=== PATIENT | female | born 1965 | race Caucasian/White ===

== ENCOUNTER 2017-10-25 07:26 | Emergency (ER) | payer BC ==
[2017-10-25] MEDS: LIDOCAINE 2% 20 ML VIAL. IJ (07:50)
== END 2017-10-25 08:40 | disposition home or self-care (01) ==
LOC: ER 07:26
DX: S60.142A Contusion of left ring finger with damage to nail, initial encounter (principal); I10 Essential (primary) hypertension; Z96.659 Presence of unspecified artificial knee joint; W23.0XXA Caught, crushed, jammed, or pinched between moving objects, initial encounter; Y93.89 Activity, other specified; Y92.89 Other specified places as the place of occurrence of the external cause; Y99.8 Other external cause status
CPT/HCPCS: 11740; 99284; J2001

== ENCOUNTER → 2018-04-28 | Outpatient (CLI) | payer OTHER ==
[2017-10-25 07:35] VITALS: BP 141/88
--- NOTE | 2018-04-28 16:33 | RAD ---
EXAM: Right lower extremity venous Doppler sonogram. HISTORY: Pain and swelling. TECHNIQUE: Hernandez scale and color Doppler sonographic evaluation of the right lower extremity veins with spectral waveform analysis was performed. FINDINGS: There is normal color flow, normal compressibility and there are normal spectral waveforms in the common femoral, superficial femoral, popliteal, posterior tibial and greater saphenous veins. IMPRESSION: No Doppler evidence of lower extremity deep venous thrombosis. Electronically signed by: Jennifer Monroy MD (04/28/2018 4:29 PM) [id number]
== END | disposition home or self-care (01) ==
LOC: RAD 09:27
PROVIDERS: ATTEND Internal Medicine
DX: Z03.89 Encounter for observation for other suspected diseases and conditions ruled out (principal)
CPT/HCPCS: 93971

== ENCOUNTER → 2018-11-28 | Outpatient (CLI) | payer OTHER ==
[2017-10-25 07:35] VITALS: BP 141/88
--- NOTE | 2018-11-28 13:13 | KCIC ---
LUMBAR SPINE WO CONTRAST Date: 11/28/2018 8:45 AM Indication: New onset low back pain Comparison: None. Technique: Multi-planar multi-weighted magnetic resonance imaging of the lumbar spine was performed without intravenous contrast using the standard lumbar spine protocol. FINDINGS: Transitional anatomy at the lumbosacral junction with the inferior most squared vertebral body designated a partially sacralized L5 vertebra. The lumbar spine is normally aligned. No acute fracture. Mild multilevel degenerative disc desiccation and disc height loss. Fatty degenerative endplate changes at T10-11 and L4-5. The conus terminates at a normal level. No abnormal signal is seen within the visualized distal spinal cord. No clumping of intrathecal nerve roots. No soft tissue abnormality in the visualized abdomen or pelvis. T12-L1: No disc bulge. No facet arthropathy. No significant spinal stenosis or neural foraminal narrowing. L1-L2: No disc bulge. No facet arthropathy. No significant spinal stenosis or neural foraminal narrowing. L2-L3: Disc bulge. Mild facet arthropathy. No significant spinal stenosis or neural foraminal narrowing. L3-L4: Disc bulge. Mild facet arthropathy. No significant spinal stenosis or neural foraminal narrowing. L4-L5: Disc bulge with annular tear. Mild facet arthropathy. No significant spinal stenosis or neural foraminal narrowing. L5-S1: No disc bulge. No facet arthropathy. No significant spinal stenosis or neural foraminal narrowing. IMPRESSION: Mild lumbar spondylosis, as detailed above. Electronically signed by: Drake Martinez MD (11/28/2018 1:10 PM) [facility]
== END | disposition home or self-care (01) ==
LOC: KCIC MRI 08:12
PROVIDERS: ATTEND Physical Medicine & Rehabilitation
DX: S33.5XXA Sprain of ligaments of lumbar spine, initial encounter (principal); M47.816 Spondylosis without myelopathy or radiculopathy, lumbar region; M12.88 Other specific arthropathies, not elsewhere classified, other specified site; X58.XXXA Exposure to other specified factors, initial encounter; Y93.89 Activity, other specified; Y92.89 Other specified places as the place of occurrence of the external cause; Y99.8 Other external cause status
CPT/HCPCS: 72148

== ENCOUNTER → 2018-12-16 | Outpatient (CLI) | payer OTHER ==
[2017-10-25 07:35] VITALS: BP 141/88
[~2018-12-16] MED LIST: CLON0.2T PO; DEXT20TA24 PO; GABA300C18 PO; HYDR-2763 PO; TIZA4TAB2 PO; ZOLP10TA4 PO
--- NOTE | 2018-12-16 22:40 | PAIN ---
DATE OF SERVICE: 12/16/2018 INITIAL CONSULTATION FOR PAIN CLINIC CHIEF COMPLAINT: Low back, bilateral lower extremity pain. HISTORY OF PRESENT ILLNESS: This is a 53-year-old female who presents with history of pain with low back and bilateral lower extremities for over a month now, building up for many months but the past month has been much worse. The patient reports it is worse with standing, walking, changing positions, bending, stooping, lifting items. The patient reports it awakens her from sleep at night about 4-6 times. She had some loss of bladder control initially about 2 times, this was about a month ago, has not happened since and is not consistent. The patient reports it does affect her ability to walk at times. She is not using any assistive devices, however. The patient had some trigger point injections with Dr. Feliz which helped for about 30 days, but the pain came back fairly significantly and it did not relieve all of her back pain. The patient reports she has taken hydrocodone as well as tizanidine, which helps only about 50:50 at a time. The patient reports no loss of motor function. Describes the pain as sharp and constant across the low back radiating to posterior gluteus, posterior thighs, lateral thighs, anterior thighs, medial thighs radiating with tingling sensation in the legs and into the feet as well bilaterally. The patient did have MRI scan of the lumbar spine showing spondylosis as well as disk bulge at L2-L3, L3-L4 and L4-L5 with mild facet arthropathy at these levels. No significant spinal stenosis narrowing noted. The patient reports a disability rating from 0 to 10, 10 being the worst, as an 8 with family and home responsibilities and occupation, 10 with recreation and social activity, 9 with sexual behavior, 6 with self-care and 2 with life support activities. The patient reports no loss of motor function, but significant fatigability of both lower extremities, worse on the right than the left, but increased fatigability with walking and standing on the right, mostly. PAST MEDICAL HISTORY: Significant for cigarette smoking, previous right knee replacement and ACL surgery on the left x 2. Otherwise, the patient has been in good health. CURRENT MEDICATIONS: Include hydrocodone, tizanidine and [id number] Aleve. ALLERGIES: The patient has no known drug allergies. FAMILY HISTORY: Significant for hypertension and diabetes. SOCIAL HISTORY: The patient does not drink alcohol, does not use any illegal, illicit or recreational drugs. Smokes less than a pack a day, has for the past 10 years. 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 REVIEW OF SYSTEMS: The patient's review of systems is positive for those items mentioned in history of present illness. All systems reviewed and otherwise negative. It is complete, full and well documented on the patient's chart. PHYSICAL EXAMINATION: VITAL SIGNS: The patient's blood pressure 144/94, pulse 96, respirations 18, temperature is 98.2 degrees Fahrenheit, height is 5 feet 2 inches, weight is 173 pounds. GENERAL: The patient is awake, alert, oriented, appropriate, very pleasant demeanor. HEENT: Shows normocephalic, atraumatic. Extraocular movements are intact and symmetrical. Oral cavity: Mucous membranes moist and pink. Dentition is intact. NECK: Shows anterior throat supple without palpable lymphadenopathy noted. Swallow reflex symmetrical. CHEST: Shows normal on inspection. Breath sounds clear to auscultation bilaterally. HEART: Shows S1, S2 clear. No murmurs auscultated. ABDOMEN: Soft, nontender, nondistended. No palpable organomegaly is noted. No rebound or guarding demonstrated. BACK: Shows spine grossly in the midline. Normal appearing thoracic kyphosis and lumbar lordotic curvature. The patient does have some small hives on the mid upper back as well as into the low back, more on the right side than the left, which is slightly erythematous but without significant raised quality. The patient's paraspinous musculature in the lumbar distribution shows symmetrical on inspection, on palpation shows some moderate tenderness diffusely throughout the upper, middle and lower distribution of the paraspinous muscles, but is symmetrical without evidence of hypertrophy, no trigger points, no radiation of pain. There is no tenderness over the spinous processes, sacrum or sacroiliac regions. The patient has good rotational motion of lumbar spine, both laterally greater than 10 degrees right and left as well as extension greater than 10 degrees, forward flexion 45 degrees without significant increase in pain. EXTREMITIES: Lower extremities show deep tendon reflexes 2+ in the patellar, 1+ tendo-calcaneus tendons are equal. Motor exam is approximately 4 on a scale of 5 with right quadriceps and hamstring and 5/5 at the ankle with dorsiflexion and extension. Left side is 5/5 throughout. Peripheral pulses are 1+ posterior tibia. No peripheral edema is noted bilaterally. Lower extremities are warm and dry to touch, equal in color and appearance. Straight leg raise noted to be negative for reproduction of radicular symptoms bilaterally. Negative Gaenslen's and Osmany's maneuver bilaterally as well. The patient is able to stand, stand on her toes without significant difficulty or loss of balance, walking with a normal appearing gait for short distance in the office today, not using any assistive devices. Skin shows warm and dry with good turgor. No edema. No rashes or bruising. Again, some hives noted on the back as described. IMPRESSION: 1. This is a 53-year-old female with approximately 1-month history of increasing pain in the low back, bilateral lower extremities. 2. MRI scan of lumbar spine as noted. 3. Cigarette smoking. PLAN: Options were discussed with the patient including conservative medical managements, physical therapies and interventional techniques. We discussed a lumbar epidural steroid injection using description as well as anatomical models to describe the procedure. Risks were then discussed and the patient will return to the clinic in approximately 1 week as she is returning to her working shift immediately after her visit today where she will be on her feet for most of the next 8 hours. We discussed this and we will have her return next week when she is off work since so she may relax and get off her feet after the injection. The patient will follow up in approximately one week. We will plan on lumbar epidural steroid injection at that time. MDE TEIXEIRA MD DR: ORION/dino JOB#: [id number] / [id number]
== END | disposition home or self-care (01) ==
LOC: PNCL 08:09
PROVIDERS: ATTEND Anesthesiology
DX: M54.5 Low back pain (principal); M79.605 Pain in left leg; M79.604 Pain in right leg; F17.210 Nicotine dependence, cigarettes, uncomplicated; Z96.641 Presence of right artificial hip joint; Z79.891 Long term (current) use of opiate analgesic; Z79.899 Other long term (current) drug therapy
CPT/HCPCS: G0463

== ENCOUNTER → 2018-12-23 | Outpatient (CLI) | payer OTHER ==
[2018-12-16 19:00] VITALS: BP 148/78
[~2018-12-23] MED LIST changes: +IOHEXOL 180 MG/ML 10 ML VIAL. ONE; +methylPREDNISolone ACETATE 40 MG/ML VIAL. ONE; +methylPREDNISolone ACETATE 80 MG/ML VIAL. ONE
--- NOTE | 2018-12-23 08:40 | PAIN ---
DATE OF SERVICE: 12/23/2018 PROGRESS NOTE FOR PAIN CLINIC DIAGNOSIS: Lumbar radiculopathy with lumbar degenerative disk disease. HISTORY OF PRESENT ILLNESS: The patient is a 53-year-old female who returns for followup status post initial evaluation and returns today as she was off working day. She was first evaluated and came back today, because she can rest after her injection. Reports still significant pain in the low back and right lower extremity as it was previously. No new motor or sensory deficits, no new changes. The patient reports it is tingling, sharp, dull, tight, and shooting pain radiating to the right leg, becoming more severe with walking, standing, changing positions, and standing at work. The patient reports it is a 10 on a scale of 10 at its worst, 8 on average, 3 at its least, and is an 8 today. The patient reports no new motor or sensory deficits, no new bowel or bladder incontinence or other complaints. PHYSICAL EXAMINATION: VITAL SIGNS: The patient's blood pressure 136/95, pulse 96, respirations are 16, temperature is 98.0 degrees Fahrenheit. GENERAL: The patient is awake, alert, oriented, appropriate, very pleasant demeanor. HEENT: Head is normocephalic, atraumatic. Extraocular movements are intact and symmetrical. Oral cavity: Mucous membranes moist and pink. Dentition is intact. NECK: Shows anterior throat supple without palpable lymphadenopathy noted. Swallow reflex symmetrical. CHEST: Shows normal on inspection. Breath sounds are clear to auscultation bilaterally. HEART: Shows S1, S2 clear. No murmurs auscultated. ABDOMEN: Soft, nontender, nondistended. No palpable organomegaly is noted. No rebound or guarding demonstrated. BACK: Shows spine grossly in the midline. Normal-appearing thoracic kyphosis and some minor flattening of lumbar lordotic curvature. EXTREMITIES: The patient's lower extremities show deep tendon reflexes at 2+ in the patella, 1+ tendo-calcaneus tendons. Motor exam is strong with approximately 4 on a scale of 5 with right quadriceps and hamstring flexion and 5/5 on the left. Peripheral pulses are 1+ posterior tibia. No peripheral edema is noted bilaterally. Options were discussed with the patient. The patient's old chart was reviewed as her current medication regimen updated. Current review of systems updated today as well. We will proceed with a lumbar epidural steroid injection today with fluoroscopic guidance. Risks were again discussed including, but not limited to bleeding, infection, possibility of epidural hematoma, subsequent neurological compromise, dural puncture, headaches, spinal cord and/or nerve damage, side effects of steroid medication, and poor results regarding pain control. The patient understands and wished to proceed. The patient will return to the clinic in approximately 2 weeks for followup. She was counseled on return appointment, activity level, and side effects to be aware of. DIAGNOSIS: Lumbar radiculopathy with lumbar degenerative disk disease. PROCEDURE: Lumbar epidural steroid injection, translaminar approach at the L4-L5 level using C-arm fluoroscopic guidance under sterile prep and drape using local anesthetic. MEDICATION INJECTED: A total of 120 mg Depo-Medrol plus 10 mL of preservative-free normal saline and 2 mL of contrast. CONDITION AT DISCHARGE: Stable. The patient tolerated the procedure well, had no complications. MED TEIXEIRA MD DR: ORION/dino JOB#: [id number] / [id number]
== END ==
LOC: PNCL 07:33
PROVIDERS: ATTEND Anesthesiology
DX: M51.16 Intervertebral disc disorders with radiculopathy, lumbar region (principal)
CPT/HCPCS: 62323; J1030; J1040; Q9965

== ENCOUNTER 2019-02-19 16:09 | Emergency (ER) | payer OTHER ==
[~2019-02-19] VITALS: Ht 152.4 cm; Wt 79.4 kg
[~2019-02-19 16:09] MED LIST changes: -IOHEXOL 180 MG/ML 10 ML VIAL. ONE; -methylPREDNISolone ACETATE 40 MG/ML VIAL. ONE; -methylPREDNISolone ACETATE 80 MG/ML VIAL. ONE
[2019-02-19 16:17] VITALS: BP 146/74
[2019-02-19] MEDS ORDERED: DIAZ5TAB PO (16:26)
[2019-02-19] MEDS ORDERED: HYDR-3164 PO (16:26)
[2019-02-19] MEDS ORDERED: METH4TAB2 PO (16:26)
--- NOTE | 2019-02-19 16:26 | PHYS DOC ---
Past Medical History Past Medical History: No Pertinent History Past Surgical History: Knee Replacement Alcohol Use: None Drug Use: None Adult General Chief Complaint Chief Complaint: BACK PAIN - NO INJURY HPI HPI Patient is a 53 year old female patient who presents to the ED today complaining of 10 out of 10 exacerbation of chronic low back pain radiating to bilateral lower extremities. Patient denies any injuries. She states she read he had an MRI which showed bulging disc, she follows up with Dr. Feliz. Patient denies any numbness or tingling to bilateral lower extremities, denies any loss of bowel bladder function. States the pain is worse on certain movements, sitting down. Review of Systems Review of Systems Constitutional: Denies fever or chills [] Musculoskeletal: Reports low back pain Integument: Denies rash or skin lesions [] Neurologic: Denies headache, focal weakness or sensory changes [] All other systems were reviewed and found to be within normal limits, except as documented in this note. Current Medications Current Medications Current Medications Medications (Trade) Dose Ordered Sig/Sg Start Time Stop Time Status Last Admin Dose Admin Diazepam (Valium) 5 mg 1X ONCE 02/19/19 16:30 02/19/19 16:31 UNV Hydromorphone HCl (Dilaudid) 1 mg 1X ONCE 02/19/19 16:30 02/19/19 16:31 UNV Ketorolac Tromethamine (Toradol Im) 60 mg 1X ONCE 02/19/19 16:30 02/19/19 16:31 UNV Ondansetron HCl (Zofran Odt) 4 mg 1X ONCE 02/19/19 16:30 02/19/19 16:31 UNV Prednisone (Prednisone) 50 mg 1X ONCE 02/19/19 16:30 02/19/19 16:31 UNV Allergies Allergies Allergies Coded Allergies Type Severity Reaction Last Updated Verified No Known Drug Allergies 10/25/17 No Physical Exam Physical Exam Constitutional: Well developed, well nourished, no acute distress, non-toxic appearance. [] Skin: Warm, dry, no erythema, no rash. [] Back: Patient is favoring standing. Diffuse paraspinal muscle tenderness bilateral lumbar spine, no midline lumbar spine tenderness, no CVA tenderness. [] Extremities: No tenderness, no cyanosis, no clubbing, ROM intact, no edema. [] Neurologic: Alert and oriented X 3, normal motor function, normal sensory function, no focal deficits noted. [] Psychologic: Affect normal, judgement normal, mood normal. [] EKG EKG [] Radiology/Procedures Radiology/Procedures [] Course & Med Decision Making Course & Med Decision Making Pertinent Labs and Imaging studies reviewed. (See chart for details) This is a 53-year-old female patient presented to the ED today with low back pain, no known injury, this is a chronic condition. Patient was given pain medicine in the ED. Follow-up with PCP in 1-2 weeks. Dragon Disclaimer Dragon Disclaimer This electronic medical record was generated, in whole or in part, using a voice recognition dictation system. Departure Departure Impression: Primary Impression: Chronic low back pain Disposition: HOME, SELF-CARE Condition: STABLE Referrals: OLI AGUILERA MD (PCP) follow up next week Patient Instructions: Back Pain, Adult, [id number] Additional Instructions: You were evaluated in the emergency room for chronic back pain. Take the prescr ibed medications as ordered. Follow-up with your doctor in the course of this week or next week. Come back to the ED at any point symptoms worsen. Scripts Methylprednisolone (MEDROL) 4 Mg Tab.ds.pk 1 PKG PO UD, #1 PKG Prov: DEMETRIUS SANDRA APRN 02/19/19 Hydrocodone/Apap 5-325 (NORCO 5-325 TABLET) 1 Each Tablet 1-2 TAB PO Q4-6HRS PRN for PAIN MDD 8, #30 TAB Prov: DEMETRIUS SANDRA APRN 02/19/19 Diazepam (VALIUM) 5 Mg Tablet 5 MG PO TID, #21 TAB Prov: DEMETRIUS SANDRA APRN 02/19/19 Problem Qualifiers Primary Impression: Chronic low back pain Back pain laterality: bilateral Sciatica presence: with sciatica Sciatica laterality: bilateral sciatica Qualified Codes: M54.42 - Lumbago with sc iatica, left side; M54.41 - Lumbago with sciatica, right side; G89.29 - Other chronic pain MARIBELLCLAUDIADEMETRIUS APRN Feb 19, 2019 16:26
[2019-02-19] MEDS ORDERED: ONDANSETRON ODT 4 MG TAB.RAPDIS. PO ONE (16:45)
[2019-02-19] MEDS ORDERED: HYDROmorphone 2 MG/ML VIAL IM ONE (16:45)
[2019-02-19] MEDS ORDERED: predniSONE 10 MG TABLET PO ONE (16:45)
[2019-02-19] MEDS ORDERED: diazePAM 5 MG TABLET PO ONE (16:45)
[2019-02-19] MEDS ORDERED: KETOROLAC 60 MG/2 ML VIAL. IM ONE (16:45)
== END 2019-02-19 16:51 | disposition home or self-care (01) ==
LOC: ER 16:09
DX: G89.29 Other chronic pain (principal); M54.41 Lumbago with sciatica, right side; Z96.659 Presence of unspecified artificial knee joint
CPT/HCPCS: 96372; 99284; J1170; J1885; J7512; Q0162

== ENCOUNTER 2019-04-06 07:40 | Emergency (ER) | payer OTHER ==
[~2019-04-06] VITALS: Ht 157.5 cm; Wt 63.5 kg
[~2019-04-06 07:40] MED LIST changes: +DIAZ5TAB PO; +HYDR-3164 PO; +METH4TAB2 PO
[2019-04-06 08:06] VITALS: BP 120/82
[2019-04-06] MEDS ORDERED: HYDROmorphone 2 MG/ML VIAL IM ONE (08:15)
[2019-04-06] MEDS ORDERED: DEXAMETHASONE SOD PHOS 20 MG/5 ML VIAL. PO ONE (08:15)
[2019-04-06] MEDS ORDERED: ORPHENADRINE CITRATE 60 MG/2 ML VIAL. IM ONE (08:15)
[2019-04-06] MEDS ORDERED: HYDR-3164 PO (08:29)
[2019-04-06] MEDS ORDERED: DIAZ5TAB PO (08:29)
[2019-04-06] MEDS ORDERED: PRED50TA PO (08:29)
--- NOTE | 2019-04-06 08:29 | PHYS DOC ---
Past Medical History Past Medical History: Other Additional Past Medical Histor: CHRONIC BACK PAIN Past Surgical History: Knee Replacement, Other Additional Past Surgical Histo: BILAT ACL, PATELLA RECONSTRUCTION Alcohol Use: None Drug Use: None Adult General Chief Complaint Chief Complaint: LOWER BACK PAIN OR INJURY [facility] HPI Patient is a 53-year-old female who presents with complaint of acute exacerbation of her chronic back pain. Patient states that pain has been so severe that she was not able to sleep very well last night. She states that pain is worsened with deep breathing and with movements. She states that she had an MRI that demonstrated bulging disks. She denies any fever.[] Review of Systems Review of Systems Constitutional: Denies fever or chills [] Respiratory: Denies cough or shortness of breath [] Cardiovascular: No additional information not addressed in HPI [] GI: Denies abdominal pain, nausea, vomiting or diarrhea [] Musculoskeletal: Complains of lower back pain [] Integument: Denies rash or skin lesions [] Neurologic: Denies any loss of bowel or bladder control[] Current Medications Current Medications Current Medications Medications (Trade) Dose Ordered Sig/Sg Start Time Stop Time Status Last Admin Dose Admin Dexamethasone Sodium Phosphate (Decadron) 20 mg 1X ONCE 04/06/19 08:15 04/06/19 08:16 DC 04/06/19 08:23 20 MG Hydromorphone HCl (Dilaudid) 1 mg 1X ONCE 04/06/19 08:15 04/06/19 08:16 DC 04/06/19 08:24 1 MG Orphenadrine Citrate (Norflex) 60 mg 1X ONCE 04/06/19 08:15 04/06/19 08:16 DC 04/06/19 08:24 60 MG Allergies Allergies Allergies Coded Allergies Type Severity Reaction Last Updated Verified No Known Drug Allergies 10/25/17 No Physical Exam Physical Exam Constitutional: Well developed, well nourished, no acute distress, non-toxic appearance. [] Cardiovascular: Regular rate and rhythm[] Lungs & Thorax: Bilateral breath sounds clear to auscultation [] Skin: Warm, dry, no erythema, no rash. [] Back: There is tenderness to palpation in lumbar paraspinal musculature. [] Neurologic: Alert and oriented X 3, no focal deficits noted. [] Current Patient Data Vital Signs Vital Signs Date Time Temp Pulse Resp B/P (MAP) Pulse Ox O2 Delivery O2 Flow Rate FiO2 04/06/19 08:06 98.1 120 16 120/82 (95) 98 98.1 EKG EKG [] Radiology/Procedures Radiology/Procedures [] Course & Med Decision Making Course & Med Decision Making Pertinent Labs and Imaging studies reviewed. (See chart for details) [] Dragon Disclaimer Dragon Disclaimer This electronic medical record was generated, in whole or in part, using a voice recognition dictation system. Departure Departure Impression: Primary Impression: Acute exacerbation of chronic low back pain Disposition: HOME, SELF-CARE Condition: STABLE Referrals: OLI AGUILERA MD (PCP) Patient Instructions: Chronic Back Pain Scripts Prednisone (PREDNISONE) 50 Mg Tablet 1 TAB PO DAILY, #5 TAB Prov: SURESH HECTOR Jr. DO 04/06/19 Diazepam (VALIUM) 5 Mg Tablet 5 MG PO BID PRN for MUSCLE SPASMS, #10 TAB Prov: SURESH HECTOR Jr. DO 04/06/19 Hydrocodone/Apap 5-325 (NORCO 5-325 TABLET) 1 Each Tablet 1-2 EACH PO PRN Q6HRS PRN for PAIN, #15 as needed for pain Prov: SURESH HECTOR Jr. DO 04/06/19 SURESH HECTOR Jr. DO Apr 06, 2019 08:29
== END 2019-04-06 08:57 | disposition home or self-care (01) ==
LOC: ER 07:40
DX: G89.29 Other chronic pain (principal); M54.5 Low back pain
CPT/HCPCS: 96372; 99284; J1100; J1170; J2360